=== PATIENT | female | born 1965 | race Caucasian/White ===

== ENCOUNTER 2017-11-14 19:45 | Inpatient (IN) | payer BC ==
[~2017-11-14] VITALS: Ht 165.1 cm; Wt 85.9 kg
[2017-11-14 20:59] VITALS: BP 124/64; PULSE 88; TEMP 97.7
[2017-11-14] MEDS ORDERED: BENICAR40 MG (21:35)
[2017-11-14 23:05] VITALS: BP 114/56; PULSE 88; TEMP 98.1
[2017-11-15] VITALS (27 sets, daily range): BP systolic 82–155; BP diastolic 41–85; PULSE 80–106; TEMP 97.8–99
[2017-11-15 00:02] LABS: HEMATOCRIT 18.5 % (37.0-47.0); HEMOGLOBIN 6.3 g/dl (12.5-16.0)
[2017-11-15 06:26] LABS: BASO % 0.2 % (0.0-2.0); EOS # 0.1 (0.0-0.7); EOS % 0.6 % (0-4.0); GRAN # 5.7 (1.4-6.5); GRAN % 66.4 % (42.2-75.2); LYMPH # 2.1 (1.2-3.4); LYMPH % 24.9 % (20.0-51.0); MEAN CELL VOLUME 90 fl (80.0-100.0); MEAN CORPUSCULAR HGB CONC 35 g/dl (33.0-37.0); MONO # 0.6 (0.1-0.6); MONO % 7.1 % (1.7-9.3); PLATELET COUNT 154 K/mm3 (130-400); RED BLOOD COUNT 2.56 M/mm3 (4.10-5.30); REDCELL DISTRIBUTION WIDTH-CV 13.4 % (11.5-14.5)
[2017-11-15 06:27] LABS: MEAN CORPUSCULAR HEMOGLOBIN 31 pg (27.0-31.0)
[2017-11-15 06:42] LABS: ALBUMIN 2.4 gm/dL (3.5-5.0); BILIRUBIN,TOTAL 0.4 mg/dL (0.0-1.0); CALCIUM 7.9 mg/dL (8.4-10.2); CREATININE, serum 0.47 mg/dL (0.52-1.25); MAGNESIUM 1.7 mg/dL (1.6-2.3); POTASSIUM 3.7 mmol/L (3.4-5.0); TOTAL PROTEIN 4.6 gm/dL (6.4-8.2)
[2017-11-16] VITALS (12 sets, daily range): BP systolic 115–144; BP diastolic 63–81; PULSE 57–95; TEMP 97.5–98.4
[2017-11-16 07:43] LABS: HEMATOCRIT 20.7 % (37.0-47.0); HEMOGLOBIN 7.1 g/dl (12.5-16.0)
[2017-11-16 15:29] LABS: HEMATOCRIT 23.5 % (37.0-47.0); HEMOGLOBIN 7.8 g/dl (12.5-16.0)
[2017-11-16 23:28] LABS: HEMATOCRIT 21.4 % (37.0-47.0); HEMOGLOBIN 7.3 g/dl (12.5-16.0)
[2017-11-17 03:39] VITALS: BP 117/70; PULSE 77; TEMP 97.8
[2017-11-17 07:35] VITALS: BP 127/75; PULSE 81; TEMP 98
[2017-11-17 08:21] LABS: HEMATOCRIT 22.3 % (37.0-47.0); HEMOGLOBIN 7.3 g/dl (12.5-16.0)
[2017-11-17 11:52] VITALS: BP 129/80; PULSE 77; TEMP 98
[2017-11-17 15:47] VITALS: BP 124/61; PULSE 83; TEMP 98.7
[2017-11-17 16:25] LABS: HEMATOCRIT 22.2 % (37.0-47.0); HEMOGLOBIN 7.5 g/dl (12.5-16.0)
[2017-11-17] MEDS ORDERED: FERROUS GL325 MG/TAB PO (17:12)
== END 2017-11-17 18:12 | disposition home or self-care (01) | DRG 378 ==
LOC: MEDICAL 19:45
PROVIDERS: Nurse Practitioner; Student in an Organized Health Care Education/Training Program; Surgery
PROC: 0DJ08ZZ Inspection of Upper Intestinal Tract, Via Natural or Artificial Opening Endoscopic (ICD-10-PCS; principal; 2017-11-15 10:30)
PROC: 0DJD8ZZ Inspection of Lower Intestinal Tract, Via Natural or Artificial Opening Endoscopic (ICD-10-PCS; 2017-11-16)
DX: K92.2 Gastrointestinal hemorrhage, unspecified (principal); D62 Acute posthemorrhagic anemia; I10 Essential (primary) hypertension; W18.39XA Other fall on same level, initial encounter; Y92.231 Patient bathroom in hospital as the place of occurrence of the external cause; K21.9 Gastro-esophageal reflux disease without esophagitis; I95.1 Orthostatic hypotension; R74.0 Nonspecific elevation of levels of transaminase and lactic acid dehydrogenase [LDH]
CPT/HCPCS: 99223-AI; 99232-AI; 99233-AI; 99239; C9113; J2060; J2405; J2704; J3010; J7030; J7120; P9016

== ENCOUNTER 2018-02-12 10:01 | Inpatient (IN) | payer BC ==
[~2018-02-12] VITALS: Ht 165.1 cm; Wt 85.0 kg
[~2018-02-12 10:01] MED LIST: BENICAR40 MG PO; FERROUS GL325 MG/TAB PO
[2018-02-25] VITALS (11 sets, daily range): BP systolic 107–150; BP diastolic 61–90; PULSE 51–105; TEMP 97.9–98.5
[2018-02-25] MEDS ORDERED: MULTI VITAMINS1 TAB PO (09:12)
[2018-02-25] MEDS ORDERED: FAMVIR125 MG PO (09:12)
[2018-02-25] MEDS ORDERED: MASON NATURAL1200 MG PO (09:13)
[2018-02-25] MEDS ORDERED: VITAMIN D31000 I1 PO (09:13)
[2018-02-25] MEDS ORDERED: OSTEO-BI-FLEX 21 TAB PO (09:14)
[2018-02-26 03:46] VITALS: BP 125/70; PULSE 69; TEMP 98.4
[2018-02-26 05:58] LABS: HEMATOCRIT 34.5 % (37.0-47.0)
[2018-02-26 06:09] LABS: CALCIUM 9.5 mg/dL (8.4-10.2); CREATININE, serum 0.68 mg/dL (0.52-1.25); MAGNESIUM 1.9 mg/dL (1.6-2.3); PHOSPHOROUS 3.7 mg/dL (2.5-4.5); POTASSIUM 4.4 mmol/L (3.4-5.0)
[2018-02-26 07:23] VITALS: BP 124/72; PULSE 65; TEMP 98.2
[2018-02-26 11:22] VITALS: BP 123/76; PULSE 69; TEMP 98.6
[2018-02-26 15:34] VITALS: BP 136/70; PULSE 81; TEMP 98.6
[2018-02-26 19:57] VITALS: BP 124/65; PULSE 83; TEMP 98.1
[2018-02-27 04:04] VITALS: BP 107/70; PULSE 66; TEMP 97.6
[2018-02-27 08:00] VITALS: BP 125/61; PULSE 67; TEMP 98.3
[2018-02-27 11:39] VITALS: BP 120/69; PULSE 79; TEMP 98.5
== END 2018-02-27 12:30 | disposition home or self-care (01) | DRG 331 ==
LOC: SURG 02-25 08:40 → INPTSU 02-25 08:40 → SURG 02-25 11:45
PROVIDERS: Surgery
PROC: 8E0W4CZ Robotic Assisted Procedure of Trunk Region, Percutaneous Endoscopic Approach (ICD-10-PCS; 2018-02-25)
PROC: 0DTB4ZZ Resection of Ileum, Percutaneous Endoscopic Approach (ICD-10-PCS; principal; 2018-02-25 11:45)
DX: C7A.012 Malignant carcinoid tumor of the ileum (principal); D3A.8 Other benign neuroendocrine tumors; I10 Essential (primary) hypertension; E83.52 Hypercalcemia
CPT/HCPCS: A4314; J1100; J1650; J1885; J2250; J2405; J2550; J2704; J3010; J7120